=== PATIENT | female | born 1960 | race Caucasian/White ===

== ENCOUNTER 2025-06-17 14:44 | Emergency (ER) | payer MEDICARE, SELFPAY ==
[2025-06-17] VITALS (15 sets, daily range): BP systolic 109–196; BP diastolic 80–118; PULSE 48–106; RESP 9–23; TEMP 36.9–37.3; O2SAT 92–99; BMI 41.5
--- NOTE | 2025-06-17 14:54 | EKG_ITS ---
[facility] Test Date: 2025-06-17 Pat Name: SALLY HUNT Department: Room: - Gender: Female Emergency Planning And Response Manager: : 1960 Requested By: Magno Bean Order Number: [id number] Reading MD: Magno Bean Measurements Intervals [place] Rate: 90 P: 3 [place]: 214 QRS: -48 QRSD: 153 T: -40 QT: 369 QTc: 452 Interpretive Statements SINUS RHYTHM WITH FIRST DEGREE AV BLOCK LEFT AXIS DEVIATION [QRS AXIS < -30] RIGHT BUNDLE BRANCH BLOCK [120+ ms QRS DURATION, UPRIGHT V1, 40+ ms S IN I/aVL/V4/V5/V6] POSSIBLE ANTERIOR MYOCARDIAL INFARCTION , OF INDETERMINATE AGE [30 ms Q WAVE IN V3/V4, OR R < 0.2 mV IN V4] MODERATE T-WAVE ABNORMALITY, CONSIDER INFERIOR ISCHEMIA [-0.1+ mV T-WAVE IN II/aVF] Compared to ECG 02/18/2018 00:26:12 First degree AV block now present Left-axis deviation now present Right bundle-branch block now present T-wave abnormality now present Possible ischemia now present Myocardial infarct finding still present /store/S0/[id number]/[id number].pdf
--- NOTE | 2025-06-17 15:10 | PD.EDRME ---
Rapid Medical Screening Exam RME Arrival date/time: 06/17/25 14:44 65-year-old female with a history of hypothyroidism, hyperlipidemia, hypertension presents to the emergency room with a chief complaint of chest tightness x 2 days, and coughing and congestion x 5 days I have greeted and performed a focused initial assessment of this patient. A comprehensive ED assessment and evaluation of the patient, analysis of all test results, and completion of the medical decision making process will be conducted by additional ED providers. Chief Complaint: General Adult/Misc Complain Vital signs reviewed by provider: Yes Exam: Strong and regular rhythm S1 and S2 noted Clear bilateral lung sounds Clinical Impression: STEMI/NSTEMI/COVID-19/influenza/chest pain
--- NOTE | 2025-06-17 15:24 | XR_ITS ---
CLINICAL INDICATION: chest pain, weakness and shortness of breath today TECHNIQUE: XR chest 1V portable Exam date and time: 06/17/2025 at 4:06 p.m. COMPARISON: Chest radiographs 02/19/2021 FINDINGS: The cardiomediastinal silhouette is prominent which may in part be magnified by the portable technique. There is unfolding of the thoracic aorta. No evidence for congestive heart failure. No airspace opacities suggestive of pneumonia. No mass detected. No pleural effusion or pneumothorax. Convex right spinal curvature may be positional in etiology or due to scoliosis. Otherwise, no acute osseous abnormalities detected. Surgical clips are identified in the right axilla. IMPRESSION: No radiographic evidence for acute cardiopulmonary abnormality.
[2025-06-17 15:59] LABS: Basophils # (Auto) 0.0 Thou/mm3 (0.0-0.2); Basophils % (Auto) 0 % (0-2.5); Eosinophils # (Auto) 0.0 Thou/mm3 (0.0-0.5); Eosinophils % (Auto) 0 % (0-10); Hematocrit 46.4 % (36.0-46.0); Hemoglobin 15.4 g/dL (12.0-16.0); Immature Granulocytes Auto 0.07 Thou/mm3 (0.00-0.00); Lymphocytes # (Auto) 1.1 Thou/mm3 (1.0-4.8); Lymphocytes % (Auto) 7 % (10-50); Mean Corpuscular HGB Conc 33.2 g/dl (31.0-37.0); Mean Corpuscular Hemoglobin 29.4 pg (25.0-35.0); Mean Corpuscular Volume 89 fL (80-100); Monocytes # (Auto) 0.8 Thou/mm3 (0.0-0.8); Monocytes % (Auto) 5 % (0-12); Neutrophils # (Auto) 14.5 Thou/mm3 (1.8-7.7); Neutrophils % (Auto) 88 % (37-80); Nucleated Red Blood Cell # 0.00 Thou/mm3 (0.00-0.00); Nucleated Red Blood Cell % 0 /100 WBC (0); Platelet Count 279 Thou/mm3 (140-440); RDW Standard Deviation 44.5 fL (36.4-46.3); Red Blood Count 5.23 Miln/mm3 (4.00-5.20); White Blood Count 16.5 Thou/mm3 (3.6-11.0)
[2025-06-17 16:01] LABS: B-Type Natriuretic Peptide 244 pg/mL (0-100)
[2025-06-17 16:03] LABS: Alanine Aminotransferase 21 U/L (10-49); Albumin, Serum 5.1 gm/dL (3.4-4.8); Albumin/Globulin Ratio 2.0 (1.2-2.2); Alkaline Phosphatase 80 U/L (46-116); Anion Gap 9 (7-16); Aspartate Amino Transferase 17 U/L (0-34); BUN/Creatinine Ratio 14 Ratio (12-20); Bilirubin,Total 0.8 mg/dL (0.3-1.2); Blood Urea Nitrogen 11 mg/dL (9-23); Calcium 9.5 mg/dL (8.3-10.6); Calcium (Corrected) 9.5 mg/dL (8.5-10.1); Carbon Dioxide 27.9 mMol/L (20.0-31.0); Chloride 100 mMol/L (98-107); Creatinine (Component) 0.8 mg/dL (0.6-1.3); Estimated Creatinine Clearance 85.7 mL/min (>60); Globulin 2.6 gm/dL (2.3-3.5); Glucose 142 mg/dL (74-106); LDH (Lactate Dehydrogenase) 211 U/L (120-246); Magnesium 2.0 mg/dL (1.6-2.6); Osmolality,Calculated 275 (275-295); Potassium 4.4 mMol/L (3.4-5.1); Sodium 137 mMol/L (136-145); Total Protein 7.7 gm/dL (5.7-8.2); Troponin I < 0.020 ng/mL (0.0-0.045); eGFR > 60 See Note
[2025-06-17 16:07] LABS: INR 1.0 (0.9-1.3); Partial Thromboplastin Time 28.8 Seconds (22.0-36.0); Prothrombin Time 10.5 Seconds (9.0-12.2)
[2025-06-17 16:18] LABS: Influenza A Ag Negative; Influenza B Ag Negative
--- NOTE | 2025-06-17 16:22 | XR_ITS ---
Examination: CT brain head without contrast. 2-D sagittal coronal reconstructions Date and time of exam: 06/17/2025 at 5:21 p.m. INDICATION: Headaches COMPARISON: None CTDI: vol (mGy): 51.1 DLP: (mGycm): 1057 Technique: Multiple CT axial sections of the brain have been obtained, 5 mm slice thickness. Contrast has not been administered. 2-D sagittal, coronal reconstructions have been obtained Low dose protocols were performed. One or more of the following dose reduction techniques were used; automated exposure control, adjustment of the mA and/or KV according to patient size, use of iterative reconstruction technique. FINDINGS: BRAIN PARENCHYMA: No evidence for acute large vessel transcortical ischemic infarction, hemorrhage, mass, or midline shift. Moderate to advanced nonspecific bilateral cerebral white matter hypoattenuation is present which most likely represents sequela of chronic ischemic microangiopathy in this age demographic. No significant focal or diffuse cerebral atrophy identified. No cerebellar tonsillar ectopia. No apparent acute abnormality of the cerebellum. VENTRICLES / EXTRA-AXIAL SPACES: No hydrocephalus, extra-axial hematoma or mass. Partially empty sella noted. Bilateral ICA atherosclerosis noted. CALVARIUM: No skull fracture or concerning focal lesion. Hyperostosis frontalis interna noted. SINUSES: No significant opacification of the paranasal sinuses. The visualized mastoid air cells are clear. OTHER EXTRACRANIAL STRUCTURES: No findings of acute significance. IMPRESSION: Negative noncontrast head CT for acute intracranial abnormality. Multifocal hypoattenuation in the white matter of the cerebral hemispheres is nonspecific but most likely represents sequela of chronic ischemic microangiopathy in this age demographic.
[2025-06-17] MEDS: NICARDIPINE/NS 20MG IVPB 20 MG/200 ML BAG 50 MG IV (16:35)
[2025-06-17] MEDS: SODIUM CHLORIDE 0.9% 1000 ML 1,000 ML 50 ML IV (16:36)
--- NOTE | 2025-06-17 17:50 | PD.EDADULT ---
ED General RME/HPI General Chief complaint: General Adult/Misc Complain Stated complaint: MULTIPLE COMPLAINTS Time Seen by Provider: 06/17/25 15:46 Arrival date/time: 06/17/25 14:44 Limitations: no limitations RME / HPI RME / HPI narrative: 06/17/25 14:44 65-year-old female with a history of hypothyroidism, hyperlipidemia, hypertension presents to the emergency room with a chief complaint of chest tightness x 2 days, and coughing and congestion x 5 days I have greeted and performed a focused initial assessment of this patient. A comprehensive ED assessment and evaluation of the patient, analysis of all test results, and completion of the medical decision making process will be conducted by additional ED providers. DR. LEWIS MAIN ED EVALUATION: 65 year old female with history of spontaneous coronary artery dissection, s/p PCI, hypertension presents to the ED for evaluation of headache and cough (producing dark phlegm ) beginning 4 days ago. Patient describes the headache as aching in sensation located most to the frontal lobe, rating as moderate. Additionally reports her blood pressure had been elevated for the last 2 days with chest pain. Though states the chest pain I always have and is not any worse than her usual. Blood pressure reading this morning before taking her medications was 210/180. Denies any fevers or sick contacts. States she took Tylenol at 10:00 AM with little to no improvement. Laborer General; Dr. Harrington in [place], [place] Exam: Strong and regular rhythm S1 and S2 noted Clear bilateral lung sounds Impression: STEMI/NSTEMI/COVID-19/influenza/chest pain Related Data Home Medications ?Medication ?Instructions ?Recorded ?Confirmed acetaminophen 500 mg tablet 500 mg PO Q6HR PRN PAIN #0 tabs 03/28/14 02/18/18 (Tylenol Extra Strength) duloxetine 60 mg capsule,delayed 60 mg PO BID #0 caps 03/28/14 02/18/18 release (Cymbalta) omeprazole 20 mg capsule,delayed 20 mg PO QDAY ##0 03/28/14 02/18/18 release (Prilosec) aspirin 81 mg chewable tablet 81 mg PO DAILY 02/18/18 02/18/18 (Aspirin Childrens) bupropion HCl 200 mg tablet,12 hr 200 mg PO QDAY 02/18/18 02/18/18 sustained-release hydrochlorothiazide 12.5 mg capsule 12.5 mg PO QAM 02/18/18 02/18/18 levothyroxine 125 mcg tablet 125 mcg PO QDAY 02/18/18 02/18/18 (Synthroid) losartan 50 mg tablet 50 mg PO BID 02/18/18 02/18/18 metoprolol succinate 50 mg 50 mg PO BID 02/18/18 02/18/18 tablet,extended release 24 hr pravastatin 20 mg tablet 10 mg PO QDAY 02/18/18 02/18/18 ticagrelor 90 mg tablet (Brilinta) 90 mg PO BID 02/18/18 02/18/18 Previous Rx's ?Medication ?Instructions ?Recorded clonidine HCl 0.1 mg tablet 0.1 mg PO BID #20 tabs 06/17/25 hydrochlorothiazide 25 mg tablet 25 mg PO QAM #30 tabs 06/17/25 Allergies Allergy/AdvReac Type Severity Reaction Status Date / Time NSAIDS (Non-Steroidal Allergy Severe Chest Pain Verified 06/17/25 14:53 Anti-Inflamma Review of Systems Review of Systems Systems Reviewed: All systems reviewed, normal except as documented Past Medical History Past Medical History CARDIAC: Positive Cardiac Disorders, Myocardial Infarction, Coronary Artery Disease and Hypertension GASTROINTESTINAL: Positive Gastrointestinal Disorders and Gastroesophageal Reflux Disease ENDOCRINE: Positive Hypothyroidism PSYCHO/SOCIAL: Positive Depression and Anxiety Surgical History SURGICAL: Positive Cardiac Surgery, Coronary Stent and Abdominal Surgery Social History SMOKING STATUS: Former smoker ED Exam General Limitations: Present no limitations General appearance: Present alert, in no apparent distress and obese Head Head exam: Present atraumatic Eye Eye exam: Present normal appearance, PERRL and EOMI ENT ENT exam: Present normal exam, normal oropharynx and mucous membranes moist Neck Neck exam: Present normal inspection, full ROM and trachea midline Chest Chest inspection: Present normal inspection and symmetric chest wall rise Respiratory Respiratory exam: Present normal lung sounds bilaterally Cardiovascular Cardiovascular exam: Present regular rate, normal rhythm and normal heart sounds Abdominal Exam Abdominal exam: Present soft and normal bowel sounds Extremities Exam Extremities exam: Present normal inspection and full ROM Back Exam Back exam: Present normal inspection and full ROM Neurological Exam Neurological exam: Present alert, oriented X3 and CN II-XII intact Psychiatric Psychiatric exam: Present normal affect and normal mood Skin Skin exam: Present warm, dry, intact and normal color Course Quality Measures none Orders Category Date Time Status Bedside COVID-19 Antigen Test NOW Care 06/17/25 15:09 Completed 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 Care 06/17/25 16:02 Completed Continuous Pulse Oximetry NOW Care 06/17/25 16:02 Completed EKG (ED ONLY) *Do not use* NOW Care 06/17/25 14:54 Completed Insert IV NOW Care 06/17/25 15:59 Completed Insert IV NOW Care 06/17/25 16:[address] head/brain wo con Stat Exams 06/17/25 16:22 Completed EKG (ED Only) Stat Exams 06/17/25 14:54 Draft XR chest 1V portable Stat Exams 06/17/25 15:24 Completed B-Type Natriuretic Peptide Stat Lab 06/17/25 15:30 Completed CBC Stat Lab 06/17/25 15:30 Completed Comprehensive Metabolic Panel Stat Lab 06/17/25 15:30 Completed Drug Screen,Urine Stat Lab 06/17/25 19:11 Completed Influenza A & B Rapid Panel Stat Lab 06/17/25 15:49 Completed LDH (Lactate Dehydrogenase) Stat Lab 06/17/25 15:30 Completed Magnesium Stat Lab 06/17/25 15:30 Completed Partial Thromboplastin Time Stat Lab 06/17/25 15:30 Completed Prothrombin Time with INR Stat Lab 06/17/25 15:30 Completed Troponin I Stat Lab 06/17/25 15:30 Completed Urinalysis, C/S if Indicated Stat Lab 06/17/25 19:11 Completed Urine Culture Stat Lab 06/17/25 19:11 Completed Acetaminophen Ivpb [Ofirmev Inj] Med 06/17/25 17:49 Discontinued 1,000 mg in 100 ml IV X1 Nicardipine/Ns 20Mg Ivpb [Cardene Ivpb] Med 06/17/25 16:21 Discontinued 20 mg in 200 ml IV 5 mg/hr Sodium Chloride 0.9% 1000 ml [Ns] 1,000 ml Med 06/17/25 16:02 Discontinued IV 50 mls/hr cloNIDine HCL [Catapres] Med 06/17/25 17:49 Discontinued 0.1 mg PO X1 ONE Oxygen Delivery NOW RT 06/17/25 16:02 Completed Vital Signs Vital signs: Vital Signs Temperature 99.1 F 06/17/25 15:15 Pulse Rate 106 H 06/17/25 15:15 Respiratory Rate 18 06/17/25 15:15 Blood Pressure 164/118 H 06/17/25 15:15 Pulse Oximetry (%) 95 06/17/25 15:15 Oxygen Delivery Method Room Air 06/17/25 15:15 Pulse ox is 95% on room air which is adequate. Discharge Plan Plan Patient Disposition: HOME (Self Care) Discharge Disposition comment: Stable Prescriptions/Referrals Prescriptions/Med Rec: New clonidine HCl 0.1 mg tablet 0.1 mg PO BID Qty: 20 0RF Rx Instructions: Please take medication when blood pressure confirmed to be greater than 170/100 hydrochlorothiazide 25 mg tablet 25 mg PO QAM Qty: 30 0RF No Action acetaminophen [Tylenol Extra Strength] 500 MG tablet 500 mg PO Q6HR PRN (Reason: PAIN) Qty: 0 omeprazole [Prilosec] 20 MG capsule,delayed release(DR/EC) 20 mg PO QDAY Qty: 0 Patient Comments: TO SUPPRESS GASTRIC ACID SECRETIONS duloxetine [Cymbalta] 60 MG capsule,delayed release(DR/EC) 60 mg PO BID Qty: 0 losartan 50 mg Tablet 50 mg PO BID metoprolol succinate 50 mg Tablet Extended Release 24 Hr 50 mg PO BID levothyroxine [Synthroid] 125 mcg Tablet 125 mcg PO QDAY hydrochlorothiazide 12.5 mg Capsule 12.5 mg PO QAM aspirin [Aspirin Childrens] 81 mg Tablet,Chewable 81 mg PO DAILY pravastatin 20 mg Tablet 10 mg PO QDAY bupropion HCl 200 mg Tablet Extended Release 12 Hr 200 mg PO QDAY ticagrelor [Brilinta] 90 mg Tablet 90 mg PO BID Referrals: No Primary/Family,Physician [Primary Care Provider] - In 1 week Problem List Clinical Impression: Accelerated essential hypertension Patient/Caregiver Discharge Instructions Discharge Activity: activity as tolerated Diet Instructions: Low-salt Education Materials: Controlling High Blood Pressure Additional Instructions: Take blood pressure twice daily and log results. Take clonidine according to parameters given. Begin hydrochlorothiazide in the a.m. and follow-up with primary care doctor in 1 week. Return if worsening i.e. escalating headaches chest pain shortness of breath or worsening illness Print Language: Djiboutian Stand Alone Forms: Marija Award Info., Patient Portal Info Letter MDM Narrative Sign Out note: 1800: Patient signed out to Dr. Wooten pending labs, imaging, and final disposition. MDM hospital course (for use when minimal MDM required): Katie Martin am scribing for and in the presence of Dr. Lewis. Clinical Information Provided by: patient Medical Records reviewed [facility] Meds/Rx considered, not ordered None Labs/Rad/Tests considered, not ordered None Chronic Illness/Social Conditions which may negatively complicate care or outcome(s)-explain: CHF/CAD/Cardiac illness EKG Interpretation EKG #1: EKG Interpretation: EKG @ 15:17. Sinus rhythm, rate 90, left axis deviation, right bundle branch block, no STEMI. Labs Labs: interpreted by ut Lab(s) Interpretation(s): Leukocytosis Initial troponin negative Imaging Imaging Interpretation(s): Ordering Physician: Kaz Reis Date of Service: 06/17/25 Procedure(s): XR chest 1V portable Accession Number(s): [id number] cc: Kaz Reis; NO PRIMARY/FAMILY,PHYSICIAN; Chalino Archibald DO~ CLINICAL INDICATION: chest pain, weakness and shortness of breath today TECHNIQUE: XR chest 1V portable Exam date and time: 06/17/2025 at 4:06 p.m. COMPARISON: Chest radiographs 02/19/2021 FINDINGS: The cardiomediastinal silhouette is prominent which may in part be magnified by the portable technique. There is unfolding of the thoracic aorta. No evidence for congestive heart failure. No airspace opacities suggestive of pneumonia. No mass detected. No pleural effusion or pneumothorax. Convex right spinal curvature may be positional in etiology or due to scoliosis. Otherwise, no acute osseous abnormalities detected. Surgical clips are identified in the right axilla. IMPRESSION: No radiographic evidence for acute cardiopulmonary abnormality. Dictated By: Chalino Archibald DO Signed By: <Electronically signed by Chalino Archbiald DO in [place]> 06/17/25 1619 Ordering Physician: Magno Lewis MD Date of Service: 06/17/25 Procedure(s): CT head/brain wo con Accession Number(s): [id number] cc: Magno Lewis MD; NO PRIMARY/FAMILY,PHYSICIAN; Chalino Archibald DO~ Examination: CT brain head without contrast. 2-D sagittal coronal reconstructions Date and time of exam: 06/17/2025 at 5:21 p.m. INDICATION: Headaches COMPARISON: None CTDI: vol (mGy): 51.1 DLP: (mGycm): 1057 Technique: Multiple CT axial sections of the brain have been obtained, 5 mm slice thickness. Contrast has not been administered. 2-D sagittal, coronal reconstructions have been obtained Low dose protocols were performed. One or more of the following dose reduction techniques were used; automated exposure control, adjustment of the mA and/or KV according to patient size, use of iterative reconstruction technique. FINDINGS: BRAIN PARENCHYMA: No evidence for acute large vessel transcortical ischemic infarction, hemorrhage, mass, or midline shift. Moderate to advanced nonspecific bilateral cerebral white matter hypoattenuation is present which most likely represents sequela of chronic ischemic microangiopathy in this age demographic. No significant focal or diffuse cerebral atrophy identified. No cerebellar tonsillar ectopia. No apparent acute abnormality of the cerebellum. VENTRICLES / EXTRA-AXIAL SPACES: No hydrocephalus, extra-axial hematoma or mass. Partially empty sella noted. Bilateral ICA atherosclerosis noted. CALVARIUM: No skull fracture or concerning focal lesion. Hyperostosis frontalis interna noted. SINUSES: No significant opacification of the paranasal sinuses. The visualized mastoid air cells are clear. OTHER EXTRACRANIAL STRUCTURES: No findings of acute significance. IMPRESSION: Negative noncontrast head CT for acute intracranial abnormality. Multifocal hypoattenuation in the white matter of the cerebral hemispheres is nonspecific but most likely represents sequela of chronic ischemic microangiopathy in this age demographic. Dictated By: Chalino Archibald DO Signed By: <Electronically signed by Chalino Archibald DO in [place]> 06/17/25 9007 Medication Administration(s) Medication Administration History Discontinued Medications Clonidine (Clonidine Hcl 0.1 Mg Tablet) 0.1 mg PO X1 ONE Stop: 06/17/25 17:50 Last Admin: 06/17/25 18:13 Dose: 0.1 mg Documented By: PADMA Sodium Chloride (Ns) 1,000 mls @ 50 mls/hr IV .Q20H ONE Stop: 06/18/25 12:01 Last Admin: 06/17/25 16:36 Dose: 50 mls/hr Documented By: PADMA Nicardipine/Sodium Chloride (Cardene Ivpb) 20 mg in 200 mls @ 50 mls/hr IV .Q4H PRN; Protocol PRN Reason: PER PROTOCOL Stop: 07/17/25 16:20 Last Titration: 06/17/25 17:30 Dose: 0 mg/hr, 0 mls/hr Documented By: Titration: 06/17/25 16:55 Dose: 3 mg/hr, 30 mls/hr Documented By: Titration: 06/17/25 16:50 Dose: 10 mg/hr, 100 mls/hr Documented By: Titration: 06/17/25 16:41 Dose: 7.5 mg/hr, 75 mls/hr Documented By: Admin: 06/17/25 16:35 Dose: 5 mg/hr, 50 mls/hr Documented By: PADMA Acetaminophen (Ofirmev Inj) 1,000 mg in 100 mls @ 250 mls/hr IV X1 ONE Stop: 06/17/25 18:12 Last Infusion: 06/17/25 18:59 Dose: Infused Documented By: Admin: 06/17/25 18:13 Dose: 250 mls/hr Documented By: PADMA See above
[2025-06-17] MEDS: ACETAMINOPHEN IVPB 1,000 MG/100 ML VIAL 250 MG IV (18:13)
--- NOTE | 2025-06-17 18:27 | PD.EDADDENDU ---
Emergency Room Addendum Addendum Narrative: 1800: Care assumed from Dr. Mishra (emergency physician). Past medical, surgical, social and family history reviewed. Vitals and home medications reviewed. Results and treatment plan discussed. I will assume the care of the patient at this time and will follow the patient, pending labs. The following addendum documentation note is intended to reflect any pending information, findings, or radiology results not included in the patient?s initial chart by the previous shift scribe. 19:48 - Assumed are of this pleasant 65 y/o female presenting escalating PHILLIPS found to be hypertensive and placed on nicardipine drip with slight overshoot, now stabilizing and overall clinically improved, resting comfortably, and neurologically intact. Optic disc margins without sign of hemorrhage or palpal edema. Will add HTZ to current regimine of Propranolol, Amlodipine, and Losartan. Additionally, Clonidine 1 mg tablets for rescue (currently 170/100). 19:55 - I have spoken with the patient and discussed today?s findings, in addition to providing specific details for the plan of care. Questions are answered and there is an agreement with the plan. Re-assessment at the time of disposition demonstrates that the patient is in no acute distress. The patient has remained stable throughout the entire ED visit and is without objective evidence for acute process requiring urgent intervention or hospitalization. The patient is stable for discharge; counseling is provided and documented as above, discussed symptomatic treatment and specific conditions for return.
[2025-06-17 19:20] LABS: Collection Type, Urine Clean Catch
[2025-06-17 19:36] LABS: Bacteria,Urine 1+; Bilirubin,Urine Negative (Negative); Blood,Urine 2+ (Negative); Clarity,Urine Turbid (Clear/Hazy); Color,Urine Yellow (Lt Yel-Yel); Glucose, Urine Negative (Negative); Ketones,Urine 1+ (Negative); Leukocyte Esterase,Urine Positive (Negative); Nitrite,Urine Positive (Negative); PH,Urine 6.5 (5.0-7.0); Protein,Urine Trace (Neg - Trace); RBC,Urine 11 /hpf (0-3); Specific Gravity,Urine 1.018 (1.001-1.035); Squamous Epithelial Cell,Urine 4 /hpf (0-5); Urobilinogen,Urine Negative mg/dL (0.0-1.0); WBC,Urine 4 /hpf (0-5)
[2025-06-17 19:38] LABS: Culture Indicated,Urine Yes
[2025-06-17 20:52] LABS: Amphetamine/Methamp Scrn,U Negative (Negative); Barbiturate Screen,Urine Negative (Negative); Benzodiazepines Screen,Urine Negative (Negative); Benzoylecgonine Screen, Ur Negative (Negative); Fentanyl Screen,Urine Negative (Negative); Opiate Screen,Urine Negative (Negative); THC Screen,Urine Negative (Negative)
== END 2025-06-17 20:07 | disposition home or self-care (01) ==
PROVIDERS: Nurse Practitioner Family; Emergency Provider Emergency Medicine
DX: I10 Essential (primary) hypertension (principal); E03.9 Hypothyroidism, unspecified; E78.5 Hyperlipidemia, unspecified
CPT/HCPCS: 36415; 70450; 71045; 80053; 80307; 81001; 83615; 83735; 83880; 84484; 85025; 85610; 85730; 87077; 87086; 87186; 87502; 87635; 93005; 96365; 96366; 99284; J0131; J2404; J7030; A9270